=== PATIENT | male | born 1975 | race Caucasian/White ===

== ENCOUNTER 2024-01-25 12:25 | Emergency (ER) | payer BC, SELFPAY ==
[2024-01-25 12:31] VITALS: BP 138/94
--- NOTE | 2024-01-25 13:32 | ED.GENMED ---
History of Present Illness
General
Chief Complaint: Allergic Reaction
Source: patient
Exam Limitations: none
Time Seen by Provider: 01/25/24 13:14
Nursing documentation reviewed up to this point in time: agreed with
History of Present Illness
History of Present Illness:
The patient is a 48-year-old male with past medical history of hyperlipidemia presenting to the emergency department today with concerns of seasonal allergies over the past week. He claims that he has known allergies to ragweed and bluegrass. He
claims that he typically lives in [place] but is having severe allergies here. Denies any chest pain shortness of breath or fevers. Denies additional concerns. Has been taking Claritin without relief.
Review of Systems
Review of Systems
Allergies reviewed?: Yes
All Other Systems: ROS reviewed and negative except as documented in HPI and ROS
Phy Exam
Physical Exam
Physical Exam:
GENERAL: Alert , in no apparent distress
EYE: pupils equal and reactive
NECK: Supple, no significant adenopathy.
ENT: Swollen boggy nasal turbinate postnasal drip o/p clr, mmm.
CARDIAC: Regular rate and rhythm .
LUNGS: Clear breath sounds bilaterally, no acute respiratory distress, no wheezes/rales/rhonchi
ABDOMEN: Soft, without focal tenderness, no r/g, no cvat
NEUROLOGICAL: Alert and oriented, no focal neuro deficits
SKIN: Warm and dry, skin intact.
MUSCULOSKELETAL: No edema, well perfused.
PSYCH: Normal and appropriate interaction.
Course
Orders/Labs/Results
Orders:
Orders
01/25/24 13:33
Dexamethasone [Decadron] 10 mg PO NOW STA
Vital Signs
Initial and Last Documented VS:
Initial Vital Signs
Temp Pulse Resp BP Pulse Ox
98.3 F 75 16 138/94 98
01/25/24 12:31 01/25/24 12:31 01/25/24 12:31 01/25/24 12:31 01/25/24 12:31
Last Documented Vital Signs
Temp Pulse Resp BP Pulse Ox
98.3 F 75 16 138/94 98
01/25/24 12:31 01/25/24 12:31 01/25/24 12:31 01/25/24 12:31 01/25/24 12:31
MDM/Problems Addressed
MDM/Problems Addressed:
48-year-old male presenting to the emergency department today with concerns of seasonal allergies. Denies additional concerns. Confirmed on exam vital signs normal patient was written for steroid nasal spray and antihistamine otherwise stable for
discharge.
*Critical Care Note
Total Time (30-74mins, 75-104mins- exclusive of procedures): Not Applicable
ED Attending Note
-
Portions of this chart may have been created with voice recognition software.� Occasional wrong word or��sound alike� substitutions may have occurred due to the inherent limitations of voice recognition software.
Discharge Plan
Departure
Patient Disposition: Home (Routine Discharge)
Date of Disposition: 01/25/24
Time of Disposition: 13:37
Patient with high blood pressure during this ER visit?: No
Condition: Good
Covid-19: Not Applicable
Discharge Problem:
Seasonal allergies
Instructions: Seasonal Allergies ED
Prescriptions:
New
dexamethasone 4 mg tablet
8 mg PO ONCE Qty: 2 0RF
Rx Instructions:
Please take once in 48 hours
fluticasone propionate [24 Hour Allergy Relief] 50 mcg/actuation spray,suspension
1 spray intranasal BID Qty: 16 0RF
cetirizine [Zyrtec] 10 mg tablet
10 mg PO BID 7 Days Qty: 14 0RF
Activity Restrictions/Additional Instructions:
You came to the emergency department today with concerns of seasonal allergies. Please take the prescribed medications to help with symptoms. Return to the emergency department any worsening, new or concerning symptoms.
Interventions
Interventions:
*Risk Screen - Suicide Last Done: 01/25/24 12:27
*Neglect/Abuse Screening Last Done: 01/25/24 12:31
Discharge Date and Time
Print Language: LIBYAN
[2024-01-25] MEDS: DECADRON 8 MG PO (14:09)
[2024-01-25 14:43] VITALS: BP 132/81
== END 2024-01-25 14:57 | disposition home or self-care (01) ==
LOC: EMR 12:25
PROVIDERS: EMERGENCY PHYSICIAN Student in an Organized Health Care Education/Training Program
DX: J30.2 Other seasonal allergic rhinitis (principal); E78.5 Hyperlipidemia, unspecified
CPT/HCPCS: 99283